=== PATIENT | male | born 1980 | race Caucasian/White ===

== ENCOUNTER 2024-04-12 03:55 | Emergency (ER) | payer OTHER, SELFPAY ==
[2024-04-12 03:57] VITALS: BP 148/96
--- NOTE | 2024-04-12 04:16 | ED.GENMED ---
History of Present Illness
General
Chief Complaint: Abdominal Pain
Source: patient, previous radiology exam (CT abdomen pelvis November 2020 showing acute sigmoid diverticulitis) and previous hospital records (Previous ED visit for similar complaint November 2020, CAT scan showing acute sigmoid diverticulitis)
Exam Limitations: none
Time Seen by Provider: 04/12/24 04:08
Nursing documentation reviewed up to this point in time: agreed with
Travel History
Have you had any contact with someone who has COVID-19?: No
Do you have any symptoms of coronavirus? Fever > 100 degrees, chills, cough, shortness of breath, sore throat, loss of taste or smell, muscle aches, or headache?: No
History of Present Illness
History of Present Illness:
This is a 44-year-old gentleman who has history of hypertension, intermittent asthma as well as history of sigmoid diverticulitis with first episode November 2020. Treated with outpatient course of Levaquin/Flagyl with resolution. Since that time
he has followed up with GI and reports having perhaps 7-8 similar episodes over the past 3-1/2 years. The most recent episode of diverticulitis was perhaps 6 months ago, treated with a course of antibiotic that was called in by his PCP.
He has been evaluated by colorectal surgeon to discuss elective sigmoidectomy but at the time was feeling well without without an episode of diverticulitis for about a year and thus decided to hold off.
He complains of left lower quadrant aching pain, mild in nature that began yesterday morning but has gotten progressively worse over the past 24 hours and awoke tonight with generalized aches, fever and moderate left lower quadrant pain. He has
passed several loose nonbloody stools perhaps 8 throughout the day yesterday. He denies nausea nor vomiting, no dysuria and urgency and or hematuria.
No close contacts with similar symptoms, no recent travel and no recent antibiotics.
His only daily medication is lisinopril. He takes albuterol as needed.
He took some Tylenol around 6 PM last night but since then has not taken anything for discomfort and or fever.
Past History
Past History
ED Past Medical History: Asthma, HTN and Other (back pain, Diverticulitis )
ED Past Surgical History: Appendectomy, Orthopedic and Other (The patient apparently has a history of having had back surgery. )
Social History
Tobacco: Former smoker
Alcohol: Former
Drug: None
Personal:
Living: with family
Employment: Employed
Family History
Family History: Other (Noncontributory)
Phy Exam
Physical Exam
Physical Exam:
GENERAL: 44-year-old male appears somewhat older than stated age, awake and alert, pleasant, appears in no acute distress. Low-grade fever noted.
EYE: anicteric
NECK: Supple, nontender, no meningismus, no significant adenopathy.
ENT: oral mucosa is moist. No rhinorrhea.
CARDIAC: Regular rate and rhythm. no murmur.
LUNGS: Clear breath sounds bilaterally, no acute respiratory distress, no wheezes/rales/rhonchi
ABDOMEN: Soft, nondistended, moderate tenderness left lower quadrant with mild local guarding, no rebound, no rigidity, no cvat. normoactive BS.
NEUROLOGICAL: Alert and oriented x3, no focal neuro deficits. Gait is steady.
SKIN: Warm and dry, normal color, skin intact. No rash.
MUSCULOSKELETAL: No C/C/E. peripheral pulses are full and equal b/l. No palpable tenderness.
PSYCH: Normal and appropriate interaction.
Course
Orders/Labs/Results
Orders:
Orders
04/12/24 04:09
Urinalysis Reflex To Culture Urgent
04/12/24 04:10
CT Abd/pelvis W Iv Cont Urgent
Comment:
Reason For Exam: LLQ abd pain, low grade fever
04/12/24 04:15
0.9% Sodium Chloride 1000 ml [Nss] 1,000 ml IV BOLUS
Ketorolac [Toradol] 15 mg IV NOW STA
04/12/24 04:24
Complete Blood Count/With Diff Urgent
Comprehensive Metabolic Panel Urgent
Lactic Acid Urgent
04/12/24 05:55
Piperacillin/Tazo 4.5 Gram [Zosyn] 4.5 gram in 100 ml IV NOW
Abnormal Lab Results
04/12/24
04:24
RBC 4.40 L 10^6/uL
(4.70-6.10)
Hct 37.7 L %
(39.0-52.0)
MCH 31.4 H pg
(27.0-31.0)
Absolute Neuts (auto) 7.7 H 10^3/uL
(1.4-6.5)
Absolute Monos (auto) 0.7 H 10^3/uL
(0.1-0.6)
Lymphocytes % 13.2 L %
(20.5-51.1)
Glucose 114 H mg/dl
(70-99)
04/12/24 04:24
04/12/24 04:24
Vital Signs
Initial and Last Documented VS:
Initial Vital Signs
Temp Pulse Resp BP Pulse Ox
100.7 F H 100 18 148/96 98
04/12/24 03:57 04/12/24 03:57 04/12/24 03:57 04/12/24 03:57 04/12/24 03:57
Last Documented Vital Signs
Temp Pulse Resp BP Pulse Ox
99.5 F 73 16 123/75 97
04/12/24 05:31 04/12/24 05:31 04/12/24 05:31 04/12/24 05:31 04/12/24 05:31
MDM/Problems Addressed
Differential Diagnosis Includes:
Significant concern for recurrent sigmoid diverticulitis, concern for potential microperforation, abscess, sepsis. Other consideration is colitis especially in light of report of diarrhea.
Will check labs as well as CT abdomen and pelvis.
Will initiate IV fluids, give IV pain medication.
Will check stool cultures if episode of diarrhea occurs.
Chronic conditions affecting care: HTN, Previous abdomnial surgery (appy) and Other (previous episodes of diverticulitis)
*Radiology
Radiology exam reviewed: radiology read reviewed (CAT scan shows acute uncomplicated sigmoid diverticulitis)
*Pulse Oximetry
Patient hypoxic: no
*Critical Care Note
Total Time (30-74mins, 75-104mins- exclusive of procedures): Not Applicable
Update Note
Update Note:
04/12/2024 0556 AM
Patient feeling improved after IV fluids and IV dose of Toradol.
Labs are reassuring with normal white blood cell count, normal lactic acid. Unremarkable chemistries.
CAT scan shows acute uncomplicated sigmoid diverticulitis.
Will give an IV dose of Zosyn and plan for 10-day course of Augmentin.
Discussed importance of limiting diet to clear liquids over the next 3 days.
A prescription for a few Vicodin has been provided for as needed moderate pain. Recommend Tylenol versus ibuprofen as needed for mild pain and fever.
Follow-up with operations clerk and recommend follow-up with colorectal surgeon as well.
Return precautions discussed.
ED Attending Note
-
Portions of this chart may have been created with voice recognition software.� Occasional wrong word or��sound alike� substitutions may have occurred due to the inherent limitations of voice recognition software.
Discharge Plan
Departure
Patient Disposition: Home (Routine Discharge)
Date of Disposition: 04/12/24
Time of Disposition: 05:58
Patient with high blood pressure during this ER visit?: No
Condition: Good
Discharge Problem:
Acute diverticulitis
Instructions: Clear Liquid Diet, Diverticulitis (DC)
Prescriptions:
New
amoxicillin-pot clavulanate 875-125 mg tablet
1 tab PO BID Qty: 20 0RF
hydrocodone-acetaminophen 5-300 mg tablet
1 tab PO Q8H PRN (Reason: moderate pain) Qty: 10 0RF
No Action
Albuterol Sulfate
2 puff IH PRN PRN (Reason: shortness of breath)
lisinopril 5 mg Tablet
5 mg PO DAILY
Referrals:
Rodger Farley MD [Family Provider] -
Activity Restrictions/Additional Instructions:
Over the next 3 days, limit your diet to clear liquids only, thereafter advance to soft bland foods as tolerated.
You have been prescribed Augmentin to be taken twice daily over the next 10 days as well as a small prescription for Vicodin, a narcotic pain medication which you may take 3 times daily as needed for moderate pain.
Continue Tylenol versus ibuprofen as needed for mild pain/fever.
Follow-up with your operations clerk for recheck and recommend follow-up with colorectal surgeon as well.
Interventions
Interventions:
*Risk Screen - Suicide Last Done: 04/12/24 03:57
*General Assessment Last Done: 04/12/24 03:57
*Neglect/Abuse Screening Last Done: 04/12/24 03:57
ED- Fall Risk Assessment Last Done: 04/12/24 04:45
*ED COVID-19 Vaccine History Last Done: 04/12/24 04:37
[facility] Assessment Last Done: 04/12/24 04:45
Discharge Date and Time
Print Language: BOLIVIAN
[2024-04-12] MEDS: NSS 1000 IV (04:34)
[2024-04-12] MEDS: TORADOL 15 MG IV (04:34)
[2024-04-12 04:35] VITALS: BMI 28.3
[2024-04-12 04:43] LABS: % Basophils 0.4 % (0-2); % Eosinophils 4.6 % (0-6); % Immature Granulocytes 0.4 % (0-0.5); % Lymphocytes 13.2 % (20.5-51.1); % Monocytes 7.1 % (1.7-9.3); % Neutrophils 74.3 % (42.2-75.2); Absolute Eosinophils 0.5 10^3/uL (0-0.7); Absolute Lymphocytes 1.4 10^3/uL (1.2-3.4); Absolute Monocytes 0.7 10^3/uL (0.1-0.6); Absolute Neutrophils 7.7 10^3/uL (1.4-6.5); Hematocrit 37.7 % (39.0-52.0); Hemoglobin 13.8 g/dL (13.0-18.0); Mean Corp Hgb Conc. 36.6 g/dL (33.0-37.0); Mean Corpuscular Hgb 31.4 pg (27.0-31.0); Mean Corpuscular Volume 85.7 fL (80.0-94.0); Mean Platelet Volume 9.3 fL (7.4-10.4); Nucleated Red Blood Cells % 0 % (-); Platelet Count 237 10^3/uL (130-400); Red Cell Dist. Width 12.4 % (11.5-14.5); White Blood Cell Count 10.3 10^3/uL (4.8-10.8)
[2024-04-12 05:06] LABS: Lactic Acid 1.2 mmol/L (0.7-2.0)
[2024-04-12 05:08] LABS: ALT (SGPT) 26 U/L (0-50); AST (SGOT) 20 U/L (17-59); Albumin 4.2 g/dl (3.5-5.0); Alkaline Phosphatase 78 U/L (38-126); Blood Urea Nitrogen 15 mg/dl (9-20); Calcium 9.2 mg/dl (8.4-10.2); Carbon Dioxide 23 mmol/L (22-30); Chloride 107 mmol/L (98-107); Estimated Creatinine Clearance > 125 ml/min; Glucose 114 mg/dl (70-99); Sodium 141 mmol/L (135-145); Total Bilirubin 0.6 mg/dl (0.2-1.3); Total Protein 6.8 g/dl (6.3-8.2); eGFR > 60.00
[2024-04-12 05:31] VITALS: BP 123/75
[2024-04-12] MEDS: ZOSYN 100 IV (06:02)
[2024-04-12 06:33] VITALS: BP 115/86
== END 2024-04-12 06:40 | disposition home or self-care (01) ==
LOC: EMR 03:55
PROVIDERS: EMERGENCY PHYSICIAN Emergency Medicine; FAMILY PHYSICIAN Internal Medicine
DX: K57.32 Diverticulitis of large intestine without perforation or abscess without bleeding (principal); I10 Essential (primary) hypertension; J45.909 Unspecified asthma, uncomplicated; K90.0 Celiac disease; K21.9 Gastro-esophageal reflux disease without esophagitis; M48.00 Spinal stenosis, site unspecified; Z79.899 Other long term (current) drug therapy; Z87.891 Personal history of nicotine dependence
CPT/HCPCS: 99285; 96375; 96361; 96365; 74177; 80053; 83605; 85025; Q9967